=== PATIENT | female | born 1955 | race Caucasian/White ===

== ENCOUNTER 2019-07-12 16:36 | Outpatient (CLI) | payer MEDICARE | END 2019-07-12 16:37 | disposition home or self-care (01) | LOC: COV 16:36 | PROVIDERS: ATTEND Family Medicine | DX: R05 Cough (principal); R06.02 Shortness of breath; R06.2 Wheezing; R53.83 Other fatigue; J02.9 Acute pharyngitis, unspecified | CPT/HCPCS: 81599 ==

== ENCOUNTER 2021-02-27 03:04 | Emergency (ER) | payer MEDICARE ==
--- NOTE | 2021-02-27 03:35 | ED Physician Documentation ---
History of Present Illness - Stated complaint Stated Complaint: HIGH BP - Chief complaint Chief Complaint: Cardiac - History obtained from History obtained from: Patient - Additonal information Additional information: 65yF with no pertinent pmh p/w high blood pressure reading at home around 2am. patient states she couldn't sleep and was feeling "fuzzy" and dizzy and took her blood pressure, finding it to be >180/100. She checked a few times and it was consistently elevated so she came to the ED. She endorses feeling "funny" since having her covid moderna booster Tuesday but denies cp, soa, fever, body aches, abd pain, nausea, fnd. does state she has been eating a richer diet than usual due to the holidays. Also endorses emotional stressors (daughter two years ago this time of year). Review of Systems Ten Systems: 10 systems reviewed and negative Constitutional: denies: Fever, Chills Cardiac: denies: Chest pain / pressure Respiratory: denies: Dyspnea GI: denies: Nausea Neurologic: reports: Other (dizziness) PD PAST MEDICAL HISTORY - Past Medical History Past Medical History: No - Past Surgical History Past Surgical History: No - Present Medications Home Medications: Ambulatory Orders Medication Instructions Recorded Confirmed No Known Home Medications 02/27/21 02/27/21 - Allergies Allergies/Adverse Reactions: Allergies Allergy/AdvReac Type Severity Reaction Status Date / Time No Known Drug Allergies Allergy Verified 02/27/21 03:23 - Social History Does the pt smoke?: No Smoking Status: Never smoker Does the pt have substance abuse?: No - Immunizations Immunizations are current?: Yes - POLST Patient has POLST: No PD ED PE NORMAL - Vitals Vital signs reviewed: Yes - General General: Alert and oriented X 3, No acute distress, Well developed/nourished - HEENT HEENT: Atraumatic, PERRL, EOMI - Neck Neck: Supple, no meningeal sign - Cardiac Cardiac: RRR - Respiratory Respiratory: No respiratory distress, Clear bilaterally - Abdomen Abdomen: Non tender, Non distended - Derm Derm: Normal color, Warm and dry - Extremities Extremities: No deformity - Neuro Neuro: Alert and oriented X 3, auto hauler 2-12 intact, No motor deficit, No sensory deficit, Normal speech - Psych Psych: Other (Good eye contact. normal mood and affect. briefly tearful when talking about her daughter's ) Results - Vitals Vitals: Vital Signs - 24 hr 02/27/21 02/27/21 02/27/21 03:15 03:22 03:31 Temperature 37.1 C Heart Rate 87 90 Heart Rate [ Sitting] Heart Rate [ Standing] Heart Rate [ Supine] Respiratory 13 18 Rate Blood Pressure 180/108 H 185/99 H 162/95 H Blood Pressure [Sitting] Blood Pressure [Standing] Blood Pressure [Supine] O2 Saturation 99 99 02/27/21 03:48 Temperature Heart Rate Heart Rate [ 88 Sitting] Heart Rate [ 96 Standing] Heart Rate [ 86 Supine] Respiratory Rate Blood Pressure Blood Pressure 173/102 H [Sitting] Blood Pressure 159/105 H [Standing] Blood Pressure 169/93 H [Supine] O2 Saturation Oxygen O2 Source Room air - EKG (time done) 0327 Rate: Rate (enter#) (86) Rhythm: NSR Intervals: Normal VT, QRS normal Ischemia: Normal ST segments Compare to prior EKG: Old EKG unavailable Computer interpretation: Agree with computer - Labs Labs: Laboratory Tests 02/27/21 02/27/21 02/27/21 03:30 03:30 03:30 WBC 8.3 RBC 5.45 H Hgb 15.7 Hct 47.6 H MCV 87.3 MCH 28.8 MCHC 33.0 RDW 13.6 Plt Count 293 MPV 9.6 Neut # (Auto) 6.0 Lymph # (Auto) 1.3 L [place] # (Auto) 0.9 Eos # (Auto) 0.1 Baso # (Auto) 0.1 Absolute Nucleated RBC 0.00 Nucleated RBC % 0.0 Sodium 140 Potassium 3.8 Chloride 103 Carbon Dioxide 24 Anion Gap 13.0 BUN 15 Creatinine 0.9 Estimated GFR (MDRD) 63 L Glucose 155 H Calcium 9.9 Total Bilirubin 0.7 AST 20 ALT 16 Alkaline Phosphatase 70 Troponin I High Sens 4.5 Total Protein 7.5 Albumin 4.3 Globulin 3.2 Albumin/Globulin Ratio 1.3 Lipase 32 PD MEDICAL DECISION MAKING - ED course ED course: 65yF presents with elevated blood pressure and feeling of "fuzziness", without any acute issues on exam, labwork, ekg, or cxr. BP is downtrending on its own in the ED. Patient endorses difficulty sleeping and feeling sad due to the anniversary of her daughter's . education given about dietary management of high blood pressure. Will have her follow up with a primary doctor in [place] for further evaluation of her BP. return precautions given. Departure - Departure Disposition: Home, Self Care Clinical Impression: Dizziness, High blood pressure Condition: Stable Instructions: Hypertension Control Comments: You were seen in the emergency department for medical evaluation. Your labwork, exam and studies did not show any emergent findings. Please plan to follow up with a primary doctor for blood pressure re-check as discussed and return to the emergency department if you have any new or worsening symptoms or other concerns.
[2021-02-27 03:42] LABS: BASOPHILS # (AUTO) 0.1 10^3/uL (0.0-0.1); BASOPHILS % (AUTO) 0.6 %; EOSINOPHILS # (AUTO) 0.1 10^3/uL (0.0-0.7); EOSINOPHILS % (AUTO) 1.6 %; HCT - HEMATOCRIT 47.6 % (37.0-47.0); HGB - HEMOGLOBIN 15.7 g/dL (12.0-16.0); LYMPHOCYTES # (AUTO) 1.3 10^3/uL (1.5-3.5); MEAN CORPUSCULAR HEMOGLOBIN 28.8 pg (27.0-31.0); MEAN CORPUSCULAR VOLUME 87.3 fL (81.0-99.0); MEAN PLATELET VOLUME 9.6 fL (7.9-10.8); MONOCYTES # (AUTO) 0.9 10^3/uL (0.0-1.0); MONOCYTES % (AUTO) 10.4 %; NEUTROPHILS % (AUTO) 71.9 %; PLT - PLATELET COUNT 293 10^3/uL (130-450); RED BLOOD COUNT 5.45 10^6/uL (4.20-5.40); RED CELL DISTRIBUTION WIDTH 13.6 % (12.0-15.0); WHITE BLOOD COUNT 8.3 x10^3/uL (4.8-10.8)
[2021-02-27 03:52] VITALS: BP 169/93
[2021-02-27 03:56] LABS: ALBUMIN 4.3 g/dL (3.2-5.5); ALBUMIN/GLOBULIN RATIO 1.3 (1.0-2.2); BILIRUBIN,TOTAL 0.7 mg/dL (0.2-1.0); CALCIUM 9.9 mg/dL (8.5-10.3); CREATININE 0.9 mg/dL (0.4-1.0); POTASSIUM 3.8 mmol/L (3.5-5.0); TOTAL PROTEIN 7.5 g/dL (6.7-8.2)
--- NOTE | 2021-02-27 12:10 | XRAY Report ---
PROCEDURE: Chest 1 View X-Ray INDICATIONS: Chest Pain TECHNIQUE: One view of the chest was acquired. COMPARISON: None FINDINGS: Surgical changes and devices: None. Lungs and pleura: No pleural effusions or pneumothorax. Lungs are clear. Mediastinum: Mediastinal contours appear normal. Heart size is enlarged. Bones and chest wall: No suspicious bony lesions. Overlying soft tissues appear unremarkable. IMPRESSION: No acute pulmonary process. Reviewed by: Becky Lin MD on 02/27/2021 12:08 PM [facility] Approved by: Becky Lin MD on 02/27/2021 12:08 PM [facility] Station ID: [id number]
== END 2021-02-27 04:39 | disposition home or self-care (01) ==
LOC: ED 03:04
DX: R03.0 Elevated blood-pressure reading, without diagnosis of hypertension (principal)
CPT/HCPCS: 36415; 80053; 83690; 84484; 85025; 93005; 99282; 99284

== ENCOUNTER 2022-06-11 10:17 | Outpatient (CLI) | payer OTHER, MEDICARE, BC | END 2022-06-11 10:18 | disposition EMS.NT | LOC: EMS 10:17 | DX: R51.9 Headache, unspecified (principal); M54.2 Cervicalgia; M54.9 Dorsalgia, unspecified; V49.00XA Driver injured in collision with unspecified motor vehicles in nontraffic accident, initial encounter; Y92.481 Parking lot as the place of occurrence of the external cause ==

== ENCOUNTER 2022-06-11 11:47 | Emergency (ER) | payer OTHER, MEDICARE, BC ==
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
[2022-06-11 14:01] VITALS: BP 143/96
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
== END 2022-06-11 16:01 | disposition home or self-care (01) ==
LOC: ED 11:47
DX: S13.4XXA Sprain of ligaments of cervical spine, initial encounter (principal); V89.2XXA Person injured in unspecified motor-vehicle accident, traffic, initial encounter; Y92.410 Unspecified street and highway as the place of occurrence of the external cause
CPT/HCPCS: 99283; 99284